=== PATIENT | male | born 1960 | race Caucasian/White ===

== ENCOUNTER → 2019-12-11 14:55 | Outpatient (REF) | payer BC, SELFPAY | LOC: ANHLAB 14:55 | PROVIDERS: PCP Family Medicine; Visit Provider Nurse Practitioner Family | DX: D49.2 Neoplasm of unspecified behavior of bone, soft tissue, and skin (principal) | CPT/HCPCS: 88305; 88342 ==

== ENCOUNTER → 2020-02-05 15:40 | Outpatient (REF) | payer BC, SELFPAY | LOC: ANHLAB 15:40 | PROVIDERS: PCP Family Medicine; Visit Provider Nurse Practitioner Family | DX: D49.2 Neoplasm of unspecified behavior of bone, soft tissue, and skin (principal) | CPT/HCPCS: 88305 ==

== ENCOUNTER 2021-04-10 07:23 | Outpatient (CLI) | payer BC, SELFPAY ==
[2021-04-10 07:47] LABS: Alanine Aminotransferase 35 U/L (4-50); Albumin Level 4.2 g/dL (3.5-5.1); Alkaline Phosphatase 42 U/L (38-126); Anion Gap 7 mmol/L (8-16); Aspartate Amino Transferase 35 U/L (17-59); Bilirubin,Total 0.4 mg/dL (0.2-1.3); Blood Urea Nitrogen 13 mg/dL (9-20); Calcium 9.2 mg/dL (8.4-10.2); Carbon Dioxide 26 mmol/L (22-30); Chloride 110 mmol/L (98-107); Cholesterol 177 mg/dL (0-200); Estimated Glomerular Filt Rate > 60; Glucose 103 mg/dL (75-110); HDL Direct 29 mg/dL; Potassium 4.2 mmol/L (3.4-5.0); Sodium 143 mmol/L (137-145); Triglycerides 278 mg/dL (<150)
[2021-04-10 07:50] LABS: Hematocrit 42.2 % (42.0-52.0); Hemoglobin 13.4 g/dL (14.0-18.0); Mean Corpuscular HGB Conc 31.8 g/dl (32-36); Mean Corpuscular Hemoglobin 28.6 pg (26-34); Mean Platelet Volume 10.7 fl (7.4-10.4); Platelet Count Result 184 k/mm3 (150-375); Red Blood Count 4.69 M/mm3 (4.6-6.20); Red Cell Distribution Width 13.6 % (11.5-14.5); White Blood Count 5.6 K/mm3 (4.5-10.0)
[2021-04-10 08:05] LABS: LDL Cholesterol Direct 74 mg/dL
[2021-04-15 11:29] LABS: Testosterone Total 318 ng/dL (250-1100)
== END 2021-04-10 07:24 | disposition home or self-care (01) ==
PROVIDERS: PCP Family Medicine; Visit Provider Family Medicine
DX: R53.83 Other fatigue (principal); E78.2 Mixed hyperlipidemia; I10 Essential (primary) hypertension; E23.0 Hypopituitarism
CPT/HCPCS: 36415; 80053; 80061; 84403; 84443; 85027

== ENCOUNTER 2021-10-19 19:22 | Emergency (ER) | payer BC, SELFPAY ==
[2021-10-19 19:30] VITALS: BP 168/84; PULSE 74; RESP 16; TEMP 36.1; O2SAT 99
--- NOTE | 2021-10-19 19:37 | ED.URI ---
HPI - URI/Sore Throat General Chief Complaint: Upper Respiratory Infection Stated Complaint: sinus infection Time Seen by Provider: 10/19/21 19:38 Source: patient, RN notes reviewed and old records reviewed Mode of arrival: ambulatory Limitations: no limitations History of Present Illness HPI Narrative: 60-year-old male presents to the [facility] care with a left frontal headache, sinus congestion for 24 hours. No treatment prior to arrival for the sinus congestion. Has taken Tylenol 1 time for his headache with minimal to no relief. MD elicited complaint: nasal congestion Related Data Home Medications Medication Instructions Recorded Confirmed aspirin 81 mg tablet,delayed 81 mg PO DAILY 11/14/19 10/19/21 release omega 3-faq-ejx-fish oil 1,200 mg 1 cap PO DAILY 09/01/21 10/19/21 (144 mg-216 mg) capsule Allergies Allergy/AdvReac Type Severity Reaction Status Date / Time ciprofloxacin Allergy Unknown Anaphylactic Verified 10/19/21 19:42 Shock Review of Systems Review of Systems: All systems reviewed & are unremarkable except as noted in HPI and below Constitutional: Constitutional: Reports no additional constitutional complaints, Denies chills and Denies fever(s) Eyes: Eyes: Reports no additional eye complaints ENT: Reports as per HPI and Reports nasal congestion Cardiovascular: Cardiovascular: Reports no additional cardiovascular complaints and Denies chest pain Respiratory: Respiratory: Reports no additional respiratory complaints, Denies cough, Denies dyspnea and Denies wheezing Gastrointestinal: Gastrointestinal: Reports no additional gastrointestinal complaints, Denies abdominal pain, Denies diarrhea, Denies nausea and Denies vomiting Musculoskeletal: Musculoskeletal: Reports no additional musculoskeletal complaints Integumentary/Breasts: Skin/Breast: Reports system reviewed and no additional complaints, except as docu Neurologic: Reports as per HPI and Reports headache(s) (Frontal left) Psychiatric: Psychiatric: Reports no additional psychiatric complaints Allergic/Immunologic: Allergic/Immunologic: Reports no additional allergic/immunologic complaints PMFSH Past Medical History Medical History Abnormal stress test Bilateral foot pain Chronic low back pain Encounter for immunization Erectile dysfunction Essential (primary) hypertension Hypogonadotropic hypogonadism Mixed hyperlipidemia Obstructive sleep apnea syndrome Prostatic hypertrophy Seborrheic keratosis Unhealthy alcohol drinking behavior Surgical History Surgical History History of hernia repair 1992 History of removal of cyst 1970 Family History Family History Mother Family history of heart disease in male family member before age 55 Other Diabetes mellitus Family history of arthritis Family history of cardiovascular disease Family history of malignant neoplasm Hypertension Social History Social History Second hand tobacco smoke exposure: No Smoking end date: 10/09/78 Alcohol intake: current Substance use: never Substance use type: does not use Gender identity (if verbalized by the patient): Male Comments At the time of my signature, I reviewed and agree with the nursing past medical, surgical, social, and family history. There is no relevant family history pertinent to the patient complaint. Exam Const: General: healthy appearing, no acute distress and alert Nutritional Appearance: well nourished Orientation/consciousness: patient oriented x3 Limitations: no limitations HENMT: Head: normal to inspection Ears: external ears normal, TM's normal bilaterally and EAC's normal General nose exam: Normal external nose present, Abnormal mucous membranes and turbinates present boggy; not erythematous and Nasal discharge present clear Face and sinus: n
== END 2021-10-19 19:55 | disposition home or self-care (01) ==
PROVIDERS: Emergency Provider Nurse Practitioner; PCP Family Medicine
DX: J32.9 Chronic sinusitis, unspecified (principal); I10 Essential (primary) hypertension; E78.2 Mixed hyperlipidemia; G47.33 Obstructive sleep apnea (adult) (pediatric)
CPT/HCPCS: 99213; G0463

== ENCOUNTER 2021-10-23 11:16 | Emergency (ER) | payer BC, SELFPAY ==
--- NOTE | 2021-10-23 11:18 | ED.SKABFB ---
HPI - Skin/Abscess/Foreign Bdy General Chief complaint: Skin/Abscess/Foreign Body Stated complaint: shingles Time Seen by Provider: 10/23/21 11:40 Source: patient and RN notes reviewed Mode of arrival: ambulatory Limitations: no limitations History of Present Illness HPI narrative: 60-year-old male presents with concern for painful rash to the left side of his face. Reports the pain started 1 week ago and he was seen for what he thought was a sinus infection, started taking Flonase. Denies any relief in pain. Reports he saw the eye doctor at the onset of pain and had a normal exam. Reports yesterday he began getting a painful rash to his left forehead and eye area. Reports left watery eye. Denies vision changes, eye pressure or pain. MD complaint: rash Related Data Home Medications Medication Instructions Recorded Confirmed aspirin 81 mg tablet,delayed 81 mg PO DAILY 11/14/19 10/19/21 release omega 6-oay-yaa-fish oil 1,200 mg 1 cap PO DAILY 09/01/21 10/19/21 (144 mg-216 mg) capsule [employer] Otc DAILY 10/23/21 [place] Otc DAILY 10/23/21 Allergies Allergy/AdvReac Type Severity Reaction Status Date / Time ciprofloxacin Allergy Unknown Anaphylactic Verified 10/19/21 19:42 Shock Review of Systems Review of Systems: CONSTITUTIONAL: Denies malaise, chills, sweats, or fever. EYES: Reports left eye redness and watery ENT: Denies rhinorrhea, congestion, swollen lips, swollen tongue CARDIOVASCULAR: Denies chest pain, palpitations, or edema. RESPIRATORY: Denies cough or dyspnea. GASTROINTESTINAL: Denies abdominal pain, nausea, vomiting SKIN: Reports painful rash on the left side of the face near the eye MUSCULOSKELETAL: Denies joint painor myalgia. NEUROLOGIC: Denies headache. All systems reviewed & are unremarkable except as noted in HPI and below PMFSH Past Medical History Medical History Abnormal stress test Bilateral foot pain Chronic low back pain Encounter for immunization Erectile dysfunction Essential (primary) hypertension Hypogonadotropic hypogonadism Mixed hyperlipidemia Obstructive sleep apnea syndrome Prostatic hypertrophy Seborrheic keratosis Unhealthy alcohol drinking behavior Surgical History Surgical History History of hernia repair 1992 History of removal of cyst 1970 Family History Family History Mother Family history of heart disease in male family member before age 55 Other Diabetes mellitus Family history of arthritis Family history of cardiovascular disease Family history of malignant neoplasm Hypertension Social History Social History Second hand tobacco smoke exposure: No Smoking end date: 10/09/78 Alcohol intake: current Substance use: never Substance use type: does not use Gender identity (if verbalized by the patient): Male Comments At time of signature, agree with nursing past medical, surgical, social and family history. There is no relevant family history pertinent to the presenting complaint Exam Narrative: GENERAL: Well-appearing, well-nourished, and in no acute distress. HEAD: Normocephalic, atraumatic. EYES: PERRLA, right conjunctivae clear, and EOMI. left conjunctivae injected with watery drainage NECK: Supple. No lymphadenopathy CHEST: Clear to auscultation. No respiratory distress. HEART: Regular rate and rhythm. SKIN: Warm, dry. Zosteriform rash noted to the left forehead and scalp, small lesion on the left upper eyelid NEURO: Alert and oriented x3. PSYCH: Normal mood and affect Course Course Emergency Course: Patient is aware of diagnosis, understands and agrees to treatment plan. Anticipatory guidance given. Patient agrees to follow-up as directed and is aware of reasons to seek care at the emergency department. Portions of this record may have been created with voice r
[2021-10-23 11:23] VITALS: BP 143/85; PULSE 82; RESP 16; TEMP 37.2; O2SAT 99
== END 2021-10-23 12:05 | disposition home or self-care (01) ==
PROVIDERS: Emergency Provider Nurse Practitioner; PCP Family Medicine
DX: B02.30 Zoster ocular disease, unspecified (principal); I10 Essential (primary) hypertension; E78.2 Mixed hyperlipidemia; G47.33 Obstructive sleep apnea (adult) (pediatric); N40.0 Benign prostatic hyperplasia without lower urinary tract symptoms; Z79.82 Long term (current) use of aspirin
CPT/HCPCS: 99213; G0463

== ENCOUNTER 2022-11-12 07:31 | Outpatient (CLI) | payer BC, SELFPAY ==
[2022-11-12 08:17] LABS: Cholesterol 106 mg/dL (0-200); HDL Direct 25 mg/dL; Triglycerides 225 mg/dL (<150)
[2022-11-12 08:28] LABS: LDL Cholesterol Direct 41 mg/dL
== END 2022-11-12 07:32 | disposition home or self-care (01) ==
LOC: ANHLAB 07:34
PROVIDERS: PCP Family Medicine; Visit Provider Nurse Practitioner Adult Health
DX: E78.1 Pure hyperglyceridemia (principal)
CPT/HCPCS: 36415; 80061

== ENCOUNTER 2022-11-26 07:14 | Outpatient (CLI) | payer BC, SELFPAY ==
[2022-11-26 07:55] LABS: Alanine Aminotransferase 24 U/L (6-50); Albumin Level 4.3 g/dL (3.5-5.1); Alkaline Phosphatase 52 U/L (38-126); Anion Gap 5 mmol/L (8-16); Aspartate Amino Transferase 27 U/L (17-59); Bilirubin,Total 0.5 mg/dL (0.2-1.3); Blood Urea Nitrogen 16 mg/dL (9-20); Calcium 8.7 mg/dL (8.4-10.2); Carbon Dioxide 30 mmol/L (22-30); Chloride 107 mmol/L (98-107); Estimated Glomerular Filt Rate > 60; Glucose 98 mg/dL (65-110); Potassium 4.4 mmol/L (3.4-5.0); Sodium 142 mmol/L (137-145)
[2022-11-26 08:04] LABS: Erythrocyte Sedimentation Rate 27 mm/hr (0-20)
[2022-11-26 08:24] LABS: Prostate Specific Antigen 0.7 ng/mL (< OR = 4.0)
[2022-11-26 08:52] LABS: Hemoglobin A1C 5.4 % (<5.7)
== END 2022-11-26 07:15 | disposition home or self-care (01) ==
PROVIDERS: PCP Family Medicine; Visit Provider Family Medicine
DX: E78.2 Mixed hyperlipidemia (principal); I10 Essential (primary) hypertension; M25.50 Pain in unspecified joint; R73.9 Hyperglycemia, unspecified; Z12.5 Encounter for screening for malignant neoplasm of prostate
CPT/HCPCS: 36415; 80053; 83036; 84153; 85652; G0103

== ENCOUNTER 2023-07-07 07:05 | Outpatient (CLI) | payer BC, SELFPAY ==
[2023-07-07 07:35] LABS: Basophils Absolute Auto 0.1 K/mm3 (0.0-0.1); Basophils Percent Auto 0.9 % (0.2-1.2); Eosinophils Absolute Auto 0.1 K/mm3 (0-0.3); Eosinophils Percent Auto 2.2 % (0-4.4); Hematocrit 43.1 % (42.0-52.0); Hemoglobin 13.7 g/dL (14.0-18.0); Immature Granulocyte Absolute 0.02 K/mm3 (0.00-0.031); Immature Granulocyte Percent A 0.3 % (0-0.5); Lymphocytes Absolute Auto 2.43 K/mm3 (0.9-3.2); Lymphocytes Percent Auto 38.3 % (18.3-44.2); Mean Corpuscular HGB Conc 31.8 g/dl (32-36); Mean Corpuscular Hemoglobin 29.1 pg (26-34); Mean Corpuscular Volume 91.7 fl (80-100); Mean Platelet Volume 10.9 fl (7.4-10.4); Monocytes Absolute Auto 0.5 K/mm3 (0.1-0.6); Monocytes Percent Auto 7.1 % (2.6-8.5); Neutrophils Absolute Auto 3.3 K/mm3 (1.3-6.7); Neutrophils Percent Auto 51.2 % (45.5-73.1); Platelet Count Result 195 k/mm3 (150-375); Red Cell Distribution Width 13.3 % (11.5-14.5); White Blood Count 6.4 K/mm3 (4.5-10.0)
[2023-07-07 07:41] LABS: Alanine Aminotransferase 26 U/L (6-50); Albumin Level 4.4 g/dL (3.5-5.1); Alkaline Phosphatase 53 U/L (38-126); Anion Gap 5 mmol/L (8-16); Aspartate Amino Transferase 29 U/L (17-59); Bilirubin,Total 0.6 mg/dL (0.2-1.3); Blood Urea Nitrogen 13 mg/dL (9-20); Calcium 9.1 mg/dL (8.4-10.2); Carbon Dioxide 28 mmol/L (22-30); Chloride 107 mmol/L (98-107); Cholesterol 105 mg/dL (0-200); Estimated Glomerular Filt Rate > 60; Glucose 97 mg/dL (65-110); HDL Direct 25 mg/dL; Potassium 4.3 mmol/L (3.4-5.0); Sodium 140 mmol/L (137-145); Triglycerides 260 mg/dL (<150)
[2023-07-07 07:52] LABS: LDL Cholesterol Direct 42 mg/dL
[2023-07-07 10:41] LABS: Iron 84 ug/dL (49-181)
[2023-07-07 10:49] LABS: Percent Iron Saturation 23 % (20-50)
[2023-07-07 12:59] LABS: Folic Acid 15.1 ng/mL (2.76->20)
== END 2023-07-07 07:06 | disposition home or self-care (01) ==
LOC: ANHLAB 07:08
PROVIDERS: PCP Family Medicine; Visit Provider Family Medicine
DX: R53.83 Other fatigue (principal); Z00.00 Encounter for general adult medical examination without abnormal findings; D64.9 Anemia, unspecified; E78.2 Mixed hyperlipidemia; I10 Essential (primary) hypertension
CPT/HCPCS: 36415; 80053; 80061; 82607; 82728; 82746; 83540; 83550; 84443; 85025

== ENCOUNTER 2023-12-22 10:11 | Outpatient (CLI) | payer BC, SELFPAY ==
[2023-12-22 10:42] LABS: Alanine Aminotransferase 26 U/L (6-50); Albumin Level 4.2 g/dL (3.5-5.1); Alkaline Phosphatase 57 U/L (38-126); Anion Gap 4 mmol/L (8-16); Aspartate Amino Transferase 31 U/L (17-59); Bilirubin,Total 0.5 mg/dL (0.2-1.3); Blood Urea Nitrogen 16 mg/dL (9-20); Calcium 9.2 mg/dL (8.4-10.2); Carbon Dioxide 29 mmol/L (22-30); Chloride 105 mmol/L (98-107); Cholesterol 101 mg/dL (0-200); Estimated Glomerular Filt Rate > 60; Glucose 103 mg/dL (65-110); HDL Direct 26 mg/dL; Potassium 4.2 mmol/L (3.4-5.0); Sodium 138 mmol/L (137-145); Triglycerides 193 mg/dL (<150)
[2023-12-22 10:53] LABS: LDL Cholesterol Direct 49 mg/dL
[2023-12-22 11:13] LABS: Prostate Specific Antigen 0.8 ng/mL (< OR = 4.0)
== END 2023-12-22 10:12 | disposition home or self-care (01) ==
LOC: ANHLAB 10:13
PROVIDERS: PCP Family Medicine; Visit Provider Family Medicine
DX: E78.2 Mixed hyperlipidemia (principal); I10 Essential (primary) hypertension; Z12.5 Encounter for screening for malignant neoplasm of prostate
CPT/HCPCS: 36415; 80053; 80061; 84153

== ENCOUNTER 2025-08-01 09:11 | Outpatient (CLI) | payer BC, SELFPAY ==
--- OUTSIDE RECORDS SUMMARY | 2025-08-01 09:24 | XMS_ITS | Clinical Summary ---
Author Organization [facility] Address [address] [place] [id number] Care Team Providers Care Top Trimmer Name Role Phone Unavailable Primary Care Provider Unavailabl e Social History Tobacco Use Types Packs/Day Years Used Date Smoking Tobacco: Never Assessed Sex and Gender Information Value Date Recorded Sex Assigned at Not on file Legal Sex Male 8:08 PM CDT Gender Identity Not on file Sexual Orientation Not on file Plan of Treatment Health Maintenance Due Date Last Done Comments Colorectal Cancer Screening Colonoscopy (10 Years) 1958 Hepatitis C 1976 DTaP, Tdap and Td Vaccines ( 1 - Tdap) 1977 Pneumococcal Vaccine: 50+ Ye ars (1 of 1 - PCV) 2008 Zoster Vaccines (1 of 2) 2008 COVID-19 Vaccine ( - 2023-2 5 season) 2025 Influenza Adult (#1) 2025 RSV Immunization or 60+ Years (1 - 1-dose 75+ series) 2033 Hepatitis A Vaccines Aged Out No long er eligible based on patient's age to complete this topic Meningococcal B Vaccine Aged Out No l onger eligible based on patient's age to complete this topic Meningococcal Vaccine Aged Out No [place] eligible based on patient's age to complete this topic RSV Immunizations Under 20 Months Aged Out No longer eligible based on patient's age to complete this topic
--- OUTSIDE RECORDS SUMMARY | 2025-08-01 09:24 | XMS_ITS | Clinical Summary ---
Author Organization [facility] Address [address] [place] [id number] Care Team Providers Care Gas Engineer Name Role Phone Michaela Alegria MD Primary Care Provider [phone] Allergies Active Allergy Reactions Criticality Noted Date Comments Ciprofloxacin Angioedema High 04/26/2022 Medications amLODIPine (NORVASC) 5 mg tablet 1 Active aspirin 81 mg enteric coated tablet Take 1 tablet (81 mg total) by mouth daily Active omega 2-jlx-sac-fish oil 1,200 (144-216) mg capsule Take 1,200 mg by mouth 2 (two) times a day Active UNABLE TO FIND - ENTER DRUG NAME IN NOTES TO PHARMACY Macroguard - (occular support) 173 mg once daily Active lisinopriL (PRINIVIL,ZEST RIL) 30 mg tablet Take 1 tablet (30 mg total) by mouth daily Active rosuvastatin (CRESTOR) 5 mg tablet Take 1 tablet (5 mg total) by mouth daily Active valACYclovir (VALTREX) 1 gram tablet Take 1 tablet (1,000 mg total) by mouth daily 3 07/18/20 Discontinu ed(Patient Reported) dexAMETHasone (DECADRON) 0.1 % ophthalmic solution SHAKE LIQUID AND INSTILL 1 DROP IN LEFT EYE THREE TIMES DAILY 3 07/18/20 Discontinu ed(Patient Reported) Active Problems Problem Noted Date Diagnosed Date Abnormal result of other cardiovascular function study 07/15/2021 Chest pain 07/15/2021 Essential hypertension 07/15/2021 Hypertriglyceridemia 07/15/2021 Family history of premature CAD 07/15/2021 Abnormal EKG 07/15/2021 Encounters Date Type Department Care Team Description 07/18/2025 8:00 AM CDT Office Visit [facility] [address] [place] [address] Barb Murillo NP Abnormal result of other cardiovascular function study (Primary Dx); Essential hypertension; Hypertriglyceridemia from Last 3 Months Surgical History Surgery Date Site/Laterality Comments HERNIA REPAIR VARICOCELE EXCISION LAPAROSCOPIC VARICOCELECTOMY GANGLION CYST EXCISION HERNIA REPAIR Medical History Medical History Date Comments Hyperlipidemia Hypertension Sleep apnea Arthritis Family History Medical History Relation Name Comments Cancer Brother Heart failure Father Heart attack Mother Cancer Sister Relation Name Status Comments Brother Alive Father (Age 89) Mother (Age 64) Sister Alive Social History Tobacco Use Types Packs/Day Years Used Date Smoking Tobacco: Former Cigarettes Q uit: 07/15/1981 Smokeless Tobacco: Never Tobacco Cessation:Counseling Given: Not Answered AUDIT-C Answer Date Recorded Q1: How often do you have a drink containing alc ohol? 2-3 times a week 07/15/2021 Q2: How many drinks containi ng alcohol do you have on a typical day when you are drinking? 5 or 6 07/15/2021 Q3: How often do you have si x or more drinks on one occasion? Weekly 07/15/2021 Personal Safety Answer Date Recorded Have you ever been in or are you currently in a harmful physical or emotional relationship or is someone making you feel afraid or unsafe? 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 Gender Identity Not on file Sexual Orientation Not on file Obstetrics History Last Filed Vital Signs Vital Sign Reading Time Taken Comments Blood Pressure 126/78 07/18/2025 8:11 AM CDT Pulse 69 07/18/2025 8:11 AM CDT Temperature - - Respiratory Rate 15 06/28/2024 10:1 1 AM CDT Oxygen Saturation 97% 07/18/2025 8:11 AM CDT Inhaled Oxygen Concentration - - Weight 110.6 kg (243 lb 12.8 oz) 07/18/2025 8:11 AM CDT Height 180.3 cm (5' 11) 07/18/2025 8:11 AM CDT Body Mass Index 34 07/18/2025 8:11 AM CDT Plan of Treatment Health Maintenance Due Date Last Done Comments Colon Cancer Screening-Colonoscopy 1958 Depression Screening 1958 Hepatitis C Screening 1958 Prostate Cancer Screening-PSA 1958 Hepatitis B Screening 1976 Pneumococcal vaccine 65+ (1 of 1 - PCV) 2008 Zoster Vaccine (1 of 2) 2008 Abdominal Aortic Aneurysm (AAA) Screen 2023 Well Visit 65+ 2023 Covid-19 Vaccine (3 - season) 2025, 01/05/2021 Influenza Vaccine (#1) 2025 Fall Risk Assessment 06/28/2025 06/28/2024 DTaP/Tdap/Td Vaccine (2 - Td or Tdap) 06/04/2031 Insurance Independent [employer] CHOICE Independent [employer] CHOICE Care Teams Gas Engineer Relationship Specialty Start Date End Date Michaela Alegria MD PCP - General Family Medicine 06/08/21
[2025-08-01 10:36] LABS: Hematocrit 41.5 % (42.0-52.0); Hemoglobin 13.2 g/dL (14.0-18.0); Immature Granulocyte Percent A 0.1 % (0-0.5); Lymphocytes Absolute Auto 2.05 K/mm3 (0.9-3.2); Mean Corpuscular HGB Conc 31.8 g/dl (32-36); Mean Corpuscular Hemoglobin 28.7 pg (26-34); Mean Corpuscular Volume 90.2 fl (80-100); Nucleated Red Blood Cells Absolute Auto 0.000 K/mm3 (0.0-0.012); Nucleated Red Blood Cells Perc 0.0 % (0.0-0.2); Platelet Count Result 199 k/mm3 (150-375); Red Blood Count 4.60 M/mm3 (4.6-6.20); White Blood Count 6.9 K/mm3 (4.5-10.0)
[2025-08-01 10:52] LABS: Hemoglobin A1C 5.3 % (<5.7)
[2025-08-01 10:56] LABS: Alanine Aminotransferase 24 U/L (6-50); Albumin Level 4.5 g/dL (3.5-5.1); Alkaline Phosphatase 57 U/L (38-126); Anion Gap 9 mmol/L (4-12); Aspartate Amino Transferase 30 U/L (17-59); Bilirubin,Total 0.6 mg/dL (0.2-1.3); Blood Urea Nitrogen 14 mg/dL (9-20); Calcium 9.5 mg/dL (8.4-10.2); Carbon Dioxide 28 mmol/L (22-30); Chloride 103 mmol/L (98-107); Cholesterol 116 mg/dL (0-200); Estimated Glomerular Filt Rate > 60; Glucose 86 mg/dL (65-110); HDL Direct 29 mg/dL; Potassium 4.5 mmol/L (3.4-5.0); Sodium 140 mmol/L (137-145); Total Protein 7.5 g/dL (6.3-8.2); Triglycerides 267 mg/dL (<150)
[2025-08-01 11:57] LABS: Prostate Specific Antigen 2.6 ng/mL (< OR = 4.0)
[2025-08-01 12:17] LABS: Vitamin B12 > 1000.0 pg/mL (239-931)
== END 2025-08-01 09:12 | disposition home or self-care (01) ==
LOC: ANHLAB 09:15
PROVIDERS: PCP Family Medicine Adolescent Medicine
DX: Z12.5 Encounter for screening for malignant neoplasm of prostate (principal); E78.2 Mixed hyperlipidemia; E53.8 Deficiency of other specified B group vitamins; R73.03 Prediabetes; R53.83 Other fatigue
CPT/HCPCS: 36415; 80053; 80061; 82607; 83036; 84153; 85025; G0103